=== PATIENT | female | born 1935 | race Caucasian/White ===

== ENCOUNTER → 2017-12-12 07:33 | Outpatient (CLI) | payer MEDICARE, OTHER, SELFPAY ==
--- NOTE | 2017-12-12 07:35 | CT_ITS ---
STUDY: CT ABDOMEN AND PELVIS WITH CONTRAST REASON FOR EXAM: Female, 82 years old. Lower quadrant pain epigastric pain history of cholecystectomy hypertension diabetes. RADIATION DOSAGE (If Supplied By Facility): CTDIvol = ( 13.16 ) mGy, DLP = ( 707.58 ) mGycm TECHNIQUE: Transaxial images were obtained from the dome of the diaphragm to the symphysis pubis without oral contrast. 100 ml of Isovue 300 contrast was administered. Sagittal and coronal images were reconstructed. Individualized dose optimization techniques were used for this CT. COMPARISON: None. FINDINGS: The visualized lung bases are unremarkable. The visualized portions of the heart are within normal limits. Normal liver. There are surgical clips in the gallbladder fossa consistent with a prior cholecystectomy. Is a nonspecific cystic space in the spleen measuring 4.1 mm. Normal pancreas. The common duct measures 5.8 mm. Normal bilateral adrenal glands. There is a 3.9 mm cyst in the right kidney. There is mild right-sided extrarenal pelvis. There is a left-sided extrarenal pelvis. There are left-sided peripelvic cysts. There is a sizable hiatal hernia with the fundus within the chest. There is a collapsed mildly thick-walled appearance of the fundus. This measures 7.1 x 4.2 cm. There is a thick walled appearance of the second part of the duodenum. There is a sizable duodenal diverticulum measuring 4.5 x 4.3 cm. The wall of the duodenum is mildly thickened at that level. There is contrast within the ascending colon. There are contrast air-fluid levels present. There is diverticulosis without visualized diverticulitis. The visualized pessary in place within the vagina. The appendix is visualized and appears normal. Aorta is partially calcified. Normal inferior vena cava. Normal retroperitoneum. Normal urinary bladder. Normal visualized uterus. Is a nonspecific calcification in the left side of the pelvis which may represent prior granulomatous tissue or calcified lymph node. Normal abdominal wall. There is slight anterolisthesis at L4-L5. There is disc space narrowing mild neural foramina narrowing facet arthropathy. At L3-L4 there is a broad disc bulge slightly anterolisthesis moderate neural foramina narrowing moderate central stenosis facet arthropathy. CT/Abdomen/Pelvis WITH Contrast IMPRESSION: Diverticulosis no radiographic evidence of diverticulitis. Pessary in place. Mildly thick-walled appearance of the duodenum at the level of a sizable diverticulum that measures 4.5 x 4.3 cm. Consider possible duodenitis. Sizable hiatal hernia the fundus of the stomach is in the chest measuring 7.1 x 4.3 cm. Status post cholecystectomy minimal intra and extra hepatic ductal dilatation. Bilateral peripelvic cysts without evidence of hydronephrosis. Electronically Signed: Francisca Ly MD at 17:15 EDT Tel , Service support ,
[2017-12-12 08:05] LABS: CREATININE FINGERSTICK 0.9 mg/dL (0.55-1.02); EGFR FINGERSTICK > 60.0000 mL/min (>60)
== END ==
PROVIDERS: Family Provider Internal Medicine; PCP Internal Medicine; Visit Provider Surgery
DX: K57.90 Diverticulosis of intestine, part unspecified, without perforation or abscess without bleeding (principal); K44.9 Diaphragmatic hernia without obstruction or gangrene; N94.89 Other specified conditions associated with female genital organs and menstrual cycle; R10.9 Unspecified abdominal pain; R19.7 Diarrhea, unspecified
CPT/HCPCS: 74177; Q9967

== ENCOUNTER 2017-12-27 09:51 | Day surgery (SDC) | payer MEDICARE, OTHER, SELFPAY ==
[2017-12-27] VITALS (7 sets, daily range): BP systolic 112–147; BP diastolic 58–71; PULSE 60–103; RESP 14–16; TEMP 36.2–36.3; O2SAT 94–100; BMI 21.9
--- NOTE | 2017-12-27 | IMM_PTH ---
PATIENT: CARMEN BETHEA I LOC: EN U#:[id number] AGE/SX: 82/F ROOM: RE12/27/[address]: Dr. Charles Campos MD : 1935 BED: DIS: 12/27/2017 SPEC #: [id number] RECD: 12/28/17 13:13 STATUS: DAYA REPolo #: [id number] [place]: 12/27/17 00:[address]: Charles Campos DEPT: IMMUNOHISTOCHEMISTRY RECD BY: Pat Terry ENTERED: 12/28/17 13:14 SP TYPE: IMMUNO OTHR DR: Dr. Oneyda South MD Tissues: A - Stomach, NOS Procedures: H Pylori (initial) PHYSICIAN & INSTITUTION [place] [id number] SPECIMEN INFORMATION: Tissue Source: A - Antral biopsy Clinical Info: LLQ pain, diarrhea Specimen Number: [id number] CPT code: 46531 METHODOLOGY: Deparaffinized sections of prefer/formalin-fixed tissue or PAP/DQ stained slides are incubated with monoclonal/polyclonal antibodies/oligonucleotide probes. Localization is made via biotin free immunoperoxidase method. Appropriate controls are performed and reacted as expected. Results on target cell population are indicated in the following table: RESULTS: ANTIBODY / CLONE RESULT Block A H Pylori (polyclonal) negative These tests were developed and their performance characteristics determined by [facility]. They may not have been cleared or approved by the U.S. Food and Drug Administration. The FDA has determined that such clearance or approval is not necessary. INTERPRETATION: A. Antral biopsy: Negative for Helicobacter pylori organisms. SJ:cameron 12/28/17
[2017-12-27 10:35] LABS: Bedside Glucose 139 mg/dL (70-110)
--- NOTE | 2017-12-27 11:00 | EGD_PTH ---
PATIENT: CARMEN BETHEA I LOC: EN U#:[id number] AGE/SX: 82/F ROOM: RE12/27/[address]: Dr. Charles Campos MD : 1935 BED: DIS: 12/27/2017 SPEC #: [id number] RECD: 12/27/17 11:59 STATUS: DAYA [place] #: [id number] [place]: 12/27/17 11:[address]: Charles Campos DEPT: SURGICAL PATHOLOGY RECD BY: Robert Savage ENTERED: 12/27/17 13:32 SP TYPE: EGD BIOPSY OTHR DR: Dr. Oneyda South MD Tissues: A - Gastric mucous membrane B - Gastric fundus C - Gastric mucous membrane D - Ileum, NOS E - COLON BIOPSY Procedures: Special Stain Group II Surgery Specimen Level IV Alcian Blue/PAS (control) HEADER OPERATION: Colonoscopy, EGD ([facility] [place]) PRE-OP DIAGNOSIS: LLQ pain, diarrhea TISSUE SUBMITTED: A - Antral biopsy, B - Fundic polyp biopsy, C - GE junction biopsy, D - Ileocecal valve biopsy, E - Random colonic biopsy MICROSCOPIC DIAGNOSIS A. Antral biopsy: Mild gastritis. B. Fundic polyp, biopsy: Fragments of gastric mucosa with focal changes suggestive of fundic gland polyp. C. GE junction, biopsy: A fragment of gastroesophageal mucosa with chronic inflammation. Intestinal metaplasia (goblet cell metaplasia) is not identified. See comment. D. Ileocecal valve, biopsy: Fragments of small intestinal and colonic mucosa, no pathologic diagnosis. E. Colon, random biopsy: Fragments of colonic mucosa, no pathologic diagnosis. SJ:cameron 12/28/17 COMMENT A. The results of immunohistochemistry for Helicobacter pylori will be reported separately ([id number]). C. Alcian blue/PAS stain with matched control is used in the evaluation of the specimen. MICROSCOPIC DESCRIPTION Slides are reviewed. A. The specimen shows fragments of gastric mucosa with chronic inflammatory cell infiltrates in the lamina propria consisting of lymphocytes and plasma cells, consistent with mild chronic gastritis. GROSS DESCRIPTION A - Received in fixative is one container labeled with the patient's name and designated antral biopsy. The specimen consists of two irregular fragments of light rizzo soft tissue that in aggregate measure 0.7 x 0.3 x 0.1 cm. The specimen is totally submitted in one cassette. B - Received in fixative is one container labeled with the patient's name and designated fundic polyp biopsy. The specimen consists of two irregular fragments of light rizzo soft tissue that in aggregate measure 0.3 x 0.3 x 0.1 cm. The specimen is totally submitted in one cassette. C - Received in fixative is one container labeled with the patient's name and designated GE junction biopsy. The specimen consists of one irregular fragment of light rizzo soft tissue that measures 0.3 x 0.2 x 0.1 cm. The specimen is totally submitted in one cassette. D - Received in fixative is one container labeled with the patient's name and designated ileocecal valve biopsy. The specimen consists of two irregular fragments of light rizzo soft tissue that in aggregate measure 0.5 x 0.2 x 0.1 cm. The specimen is totally submitted in one cassette. E - Received in fixative is one container labeled with the patient's name and designated random colonic biopsy. The specimen consists of multiple irregular fragments of light rizzo soft tissue that in aggregate measure 2 x 0.5 x 0.1 cm. The specimen is totally submitted in one cassette. / MYRON:cameron 12/27/17 TC:3 CPT: 13511 x5, 61661
--- NOTE | 2017-12-27 11:46 | OP.ENDO_ITS ---
Patient Name: Radha Alvarez Procedure Date: 12/27/2017 10:51 AM Date of : 1935 Age: 82 Procedure: Upper GI endoscopy Indications: Dysphagia Providers: Charles Campos MD Referring MD: Charles Campos MD Medicines: See the Anesthesia note for documentation of the administered medications Patient Profile: Previously obtained CT showed a herniation in the stomach. Complications: No immediate complications. Procedure: Pre-Anesthesia Assessment: - Prior to the procedure, a History and Physical was performed, and patient medications and allergies were reviewed. The patient's tolerance of previous anesthesia was also reviewed. The risks and benefits of the procedure and the sedation options and risks were discussed with the patient. All questions were answered, and informed consent was obtained. Prior Anticoagulants: The patient has taken no previous anticoagulant or antiplatelet agents. ASA Grade Assessment: II - A patient with mild systemic disease. After reviewing the risks and benefits, the patient was deemed in satisfactory condition to undergo the procedure. After obtaining informed consent, the endoscope was passed under direct vision. Throughout the procedure, the patient's blood pressure, pulse, and oxygen saturations were monitored continuously. The gastroscope was introduced through the mouth, and advanced to the second part of duodenum. The upper GI endoscopy was accomplished without difficulty. The patient tolerated the procedure well. Scope In: 11:05:15 AM Scope Out: 11:18:47 AM Total Procedure Duration Time 0 hours 13 minutes 32 seconds Findings: LA Grade A (one or more mucosal breaks less than 5 mm, not extending between tops of 2 mucosal folds) esophagitis with no bleeding was found 30 cm from the incisors. Biopsies were taken with a cold forceps for histology. A large hiatal hernia was present. One benign-appearing, intrinsic stenosis was found 30 cm from the incisors. This stenosis was moderately severe and. The stenosis was traversed. A TTS dilator was passed through the scope. Dilation with an 18-19-20 mm balloon dilator was performed to 20 mm. The dilation site was examined and showed moderate improvement in luminal narrowing. Estimated blood loss was minimal. Diffuse minimal inflammation was found in the gastric antrum. Biopsies were taken with a cold forceps for histology. Multiple sessile polyps with no bleeding and no stigmata of recent bleeding were found in the gastric fundus. The polyp was removed with a cold biopsy forceps. Resection and retrieval were complete. The examined duodenum was normal. Impression: - LA Grade A reflux esophagitis. Biopsied. - Large hiatal hernia. - Benign-appearing esophageal stenosis. Schatzki ring. Dilated. - Chronic gastritis. Biopsied. - Multiple gastric polyps. Resected and retrieved. - Normal examined duodenum. Recommendation: - Return to my office in 1 week. - Continue present medications. Procedure Code(s): --- Professional --- 32501, Esophagogastroduodenoscopy, flexible, transoral; with transendoscopic balloon dilation of esophagus (less than 30 mm diameter) 85497, 59, Esophagogastroduodenoscopy, flexible, transoral; with biopsy, single or multiple Diagnosis Code(s): --- Professional --- K21.0, Gastro-esophageal reflux disease with esophagitis K44.9, Diaphragmatic hernia without obstruction or gangrene K22.2, Esophageal obstruction K29.50, Unspecified chronic gastritis without bleeding K31.7, Polyp of stomach and duodenum R13.10, Dysphagia, unspecified CPT copyright 2017 [employer]. All rights reserved. The codes documented in this report are preliminary and upon dried yeast supervisor review may be revised to meet current compliance requirements. Charles Campos MD 12/27/2017 11:46:13 AM This report has been signed electronically. Number of Addenda: 0 Note Initiated On: 12/27/2017 10:51 AM
--- NOTE | 2017-12-27 11:55 | OP.ENDO_ITS ---
Patient Name: Radha Alvarez Procedure Date: 12/27/2017 11:20 AM Date of : 1935 Age: 82 Procedure: Colonoscopy Indications: Abdominal pain in the left lower quadrant, Clinically significant diarrhea of unexplained origin Providers: Charles Campos MD Referring MD: Charles Campos MD Medicines: See the Anesthesia note for documentation of the administered medications Patient Profile: Previously obtained CT showed a herniation in the stomach. Last Colonoscopy: October 2012. Complications: No immediate complications. Procedure: Pre-Anesthesia Assessment: - Prior to the procedure, a History and Physical was performed, and patient medications and allergies were reviewed. The patient's tolerance of previous anesthesia was also reviewed. The risks and benefits of the procedure and the sedation options and risks were discussed with the patient. All questions were answered, and informed consent was obtained. Prior Anticoagulants: The patient has taken no previous anticoagulant or antiplatelet agents. ASA Grade Assessment: II - A patient with mild systemic disease. After reviewing the risks and benefits, the patient was deemed in satisfactory condition to undergo the procedure. After I obtained informed consent, the scope was passed under direct vision. Throughout the procedure, the patient's blood pressure, pulse, and oxygen saturations were monitored continuously. The colonoscope was introduced through the anus and advanced to the cecum, identified by appendiceal orifice and ileocecal valve. The colonoscopy was performed without difficulty. The patient tolerated the procedure well. The quality of the bowel preparation was good. Scope In: 11:22:46 AM Scope Withdrawal Time 0 hours 8 minutes 58 seconds Scope Out: 11:38:22 AM Total Procedure Duration Time 0 hours 15 minutes 36 seconds Findings: The digital rectal exam findings include internal hemorrhoids that prolapse with straining, but spontaneously regress to the resting position (Grade II). Multiple diverticula were found in the sigmoid colon and descending colon. Biopsies for histology were taken with a cold forceps from the entire colon for evaluation of microscopic colitis. A focal area of Moderately large lipoma mucosa was found at the ileocecal valve. Biopsies were taken with a cold forceps for histology. Impression: - Internal hemorrhoids that prolapse with straining, but spontaneously regress to the resting position (Grade II) found on digital rectal exam. - Diverticulosis in the sigmoid colon and in the descending colon. Biopsied. - Mucosa at the ileocecal valve. Biopsied. Consistent with a lipoma of the ileocecal valve Recommendation: - Discharge patient to home. - Resume previous diet. - Continue present medications. - Return to my office in 1 week. Extensive sigmoid diverticular disease and mat be source of abdominal pain and diarrhea. Random biopsy pathology and ileocecal valve pathology pending - Repeat colonoscopy in 5 years for surveillance because of family history of colon cancer in her father Procedure Code(s): --- Professional --- 48729, Colonoscopy, flexible; with biopsy, single or multiple Diagnosis Code(s): --- Professional --- K64.1, Second degree hemorrhoids K63.89, Other specified diseases of intestine R10.32, Left lower quadrant pain R19.7, Diarrhea, unspecified K57.30, Diverticulosis of large intestine without perforation or abscess without bleeding CPT copyright 2017 [employer] [place] [employer]. All rights reserved. The codes documented in this report are preliminary and upon rag cutting machine tender review may be revised to meet current compliance requirements. Charles Campos MD 12/27/2017 11:54:42 AM This report has been signed electronically. Number of Addenda: 0 Note Initiated On: 12/27/2017 11:20 AM
== END 2017-12-27 12:49 | disposition home or self-care (01) ==
LOC: EN 09:52 → AC 09:53
PROVIDERS: Family Provider Internal Medicine; PCP Internal Medicine; Referring Provider Surgery; Visit Provider Surgery
PROC: 0DJD8ZZ Inspection of Lower Intestinal Tract, Via Natural or Artificial Opening Endoscopic (ICD-10-PCS; CPT 45378; principal; 2017-12-27 10:55)
DX: K21.0 Gastro-esophageal reflux disease with esophagitis (principal); K29.50 Unspecified chronic gastritis without bleeding; K31.7 Polyp of stomach and duodenum; K44.9 Diaphragmatic hernia without obstruction or gangrene; K22.2 Esophageal obstruction; R13.10 Dysphagia, unspecified; K64.1 Second degree hemorrhoids; K57.30 Diverticulosis of large intestine without perforation or abscess without bleeding; K63.89 Other specified diseases of intestine; R10.32 Left lower quadrant pain; R19.7 Diarrhea, unspecified; E03.9 Hypothyroidism, unspecified; E78.5 Hyperlipidemia, unspecified; M81.0 Age-related osteoporosis without current pathological fracture; E11.9 Type 2 diabetes mellitus without complications; Z79.84 Long term (current) use of oral hypoglycemic drugs; Z79.899 Other long term (current) drug therapy; Z80.0 Family history of malignant neoplasm of digestive organs
CPT/HCPCS: 43239; 43249; 45380; 82962; 88305; 88313; 88342; J7120

== ENCOUNTER → 2018-03-16 08:14 | Outpatient (CLI) | payer MEDICARE, OTHER, SELFPAY ==
[2017-12-27 10:12] VITALS: BMI 21.9
--- NOTE | 2018-03-16 08:30 | RAD_ITS ---
CLINICAL HISTORY: Female, 82 years old. PROCEDURE: Double contrast upper GI CONSENT: 1 SEDATION: No FLUOROSCOPY TIME (if supplied): (0:13) minutes/seconds TECHNIQUE: (All elements of maximal sterile barrier technique followed, including US elements as applicable) Patient swallowed barium without difficulty no evidence of obstruction. There is fixed pattern hernia this measures about 3 x 2.3 cm in its craniocaudad transverse diameter. There was moderate gastroesophageal reflux. The rest of the stomach was filled with contrast to its normal contour without evidence of mucosal abnormality. The duodenal bulb and sweep are unremarkable so is the small bowel. RAD/Upper GI w/BA Swallow IMPRESSION: Fixed hiatal hernia of moderate size as described above with gastroesophageal reflux. Electronically Signed: Ryan Vieira, at 15:09 EST Tel , Service support ,
== END ==
PROVIDERS: Family Provider Internal Medicine; PCP Internal Medicine; Referring Provider Surgery; Visit Provider Surgery
DX: K21.0 Gastro-esophageal reflux disease with esophagitis (principal); K44.9 Diaphragmatic hernia without obstruction or gangrene
CPT/HCPCS: 74246

== ENCOUNTER 2018-03-30 08:53 | Day surgery (SDC) | payer MEDICARE, OTHER, SELFPAY ==
[2017-12-27 10:12] VITALS: BMI 21.9
[2018-03-30 09:21] VITALS: BP 164/84; PULSE 91; RESP 16; TEMP 36.4; O2SAT 100
== END 2018-03-30 10:24 | disposition home or self-care (01) ==
PROVIDERS: Surgery; Family Provider Internal Medicine; PCP Internal Medicine; Referring Provider Surgery; Visit Provider Surgery
PROC: F00ZJWZ Instrumental Swallowing and Oral Function Assessment using Swallowing Equipment (ICD-10-PCS; CPT 43235; principal; 2018-03-30 08:55)
DX: K21.9 Gastro-esophageal reflux disease without esophagitis (principal)
CPT/HCPCS: 91010

== ENCOUNTER 2018-04-19 10:16 | Observation (INO) | payer MEDICARE, OTHER, SELFPAY ==
--- NOTE | 2018-04-13 12:56 | EKG12_ITS ---
Test Reason : PRE OP Blood Pressure : / mmHG Vent. Rate : 068 BPM Atrial Rate : 068 BPM P-R Int : 154 ms QRS Dur : 066 ms QT Int : 362 ms P-R-T Axes : 047 006 044 degrees QTc Int : 384 ms Normal sinus rhythm Low voltage QRS Borderline ECG Confirmed by BRITTANY HARRISON, AFRICA ([id number]), newspaper copy editor REINA PEDROZA ([id number]) on 04/14/2018 2:36:06 PM Referred By: Charles Campos Confirmed By:AFRICA SOTO MD
[2018-04-13 13:27] LABS: Hematocrit 39.8 % (37-47); Mean Corp Hgb Conc 32.7 g/gl (32-36); Mean Corpuscular Hgb 32.1 pg (27.0-32.0); Mean Corpuscular Volume 98.3 fL (81-99); Mean Platelet Vol. 9.9 fl (6.2-12.0); Platelet Count 276 K/mm3 (150-450); RBC Distribution Width CV 12.8 % (11.6-14.6); RBC Distribution Width SD 45.3 fl (35.1-43.9); Red Blood Count 4.05 M/mm3 (4.2-5.4); White Blood Count 7.3 K/mm3 (4.4-11.0)
[2018-04-13 13:29] LABS: Scan Indicated on CBC? Y/N NO
[2018-04-13 13:56] LABS: Hemoglobin A1c 7.5 % (4.2-6.3)
[2018-04-13 14:01] LABS: Anion Gap 7 (5-15); BUN 15 mg/dL (7-18); Calcium,Total 9.5 mg/dL (8.5-10.1); Chloride 106 mmol/L (98-107); EST Glomerular Filtration Rate 56 mL/min (>60); Est Glom Filt Rate - Afr Amer 68 mL/min (>60); Glucose 135 mg/dL (74-106); Potassium 4.3 mmol/L (3.5-5.1); Sodium Level 139 mmol/L (136-145); Thyroid Stim Hormone (TSH) 2.41 uIU/mL (0.358-3.74)
[2018-04-19] VITALS (10 sets, daily range): BP systolic 117–155; BP diastolic 50–77; PULSE 62–88; RESP 14–16; TEMP 36.3–37.1; O2SAT 95–100; BMI 21.9
[2018-04-19 06:15] LABS: Bedside Glucose 144 mg/dL (70-110)
--- NOTE | 2018-04-19 07:04 | PCM.DC.GS ---
<Charles Campos - Last Filed: 04/19/18 07:04> Discharge Diet: Light diet - advance as tolerated - if you have questions about your diet instructions, please talk to you doctor. Discharge Activity: May Not Drive - for 3-5 days or while taking narcotic pain medicine. May shower in (days): 1 Lifting Restrictions: 10 pounds Call your doctor if your incision/area has: Continuous Slow Oozing, Sudden Increased Bleeding, Increased Pain/ Swelling, Increased Redness, Foul Smelling Discharge Call your doctor if you observe: Fever of 101 or Higher Suture Line Care: Avoid Pulling/Pushing, Avoid Pinching/Bending Additional Dressing/Incision Instructions:: Change or remove dressing in 3 days. Leave steri-strips in place for 1 week. Allergies/Adverse Reactions: Allergies shrimp Allergy (Verified 04/12/18 10:09) Hives Medications to take at Discharge cholecalciferol (vitamin D3) 1,000 unit capsule 2,000 unit PO DAILY cap 12/05/17 glipizide 5 mg tablet 5 mg PO DAILY 12/05/17 levothyroxine 100 mcg capsule 100 mcg PO DAILY 12/05/17 lisinopril 5 mg tablet 5 mg PO DAILY 12/05/17 metformin ER 500 mg tablet,extended release 24 hr 500 mg PO DAILY tab 12/05/17 Estradiol [Estrace Vaginal Cream] 1 dose VAGINAL UD 12/23/17 Esomeprazole Magnesium [Nexium 24Hr] 20 mg PO DAILY 04/12/18 Hydrocodone Bitart/Apap 5-325 [[employer] 5MG-325MG] 1 tablet PO Q6H PRN PRN 3 Days #8 tablet 04/19/18 The following prescriptions were given: Hydrocodone Bitart/Apap 5-325 [[employer] 5MG-325MG] 1 tablet PO Q6H PRN PRN 3 Days #8 tablet PRN Reason: Pain Orders to be completed after discharge: Hemoglobin A1c Time Frame: 04/12/18, Location: Laboratory Thyroid Stim Hormone (TSH) Time Frame: 04/12/18, Location: Laboratory Primary Care Physician: Oneyda South MD [Primary Care Provider] - Test Results: Test results from this visit will be discussed in further detail at your follow-up appointment, if applicable. Please Follow Up With: Charles Campos MD - [phone] When: Call to make an appointment to be seen in about 10 days. <Angie Banerjee - Last Filed: 04/20/18 15:06> Test Results: Test results from this visit will be discussed in further detail at your follow-up appointment, if applicable.
[2018-04-19] MEDS: Cefazolin 2 GM in 0.9% Normal Saline 100 ML IV (07:13)
[2018-04-19] MEDS: Bupivacaine Mpf 0.5% 30 ML VIAL (10:18)
--- NOTE | 2018-04-19 10:23 | PCM.OPRPT ---
Problem List (1) Hiatal hernia with gastroesophageal reflux disease and esophagitis Status: Acute (2) Bilateral inguinal hernia Status: Acute Qualifiers: Obstruction and gangrene presence: without obstruction or gangrene Recurrence: non-recurrent Qualified Code(s): K40.20 - Bilateral inguinal hernia, without obstruction or gangrene, not specified as recurrent Report of Operation Date of Procedure: 04/19/18 Pre-Operative Diagnosis: Symptomatic hiatal hernia with gastroesophageal reflux disease and Schatzki ring Post-Operative Diagnosis: Symptomatic hiatal hernia with paraesophageal component and symptomatic gastroesophageal reflux disease and Schatzki ring. Bilateral indirect inguinal hernias with small bowel involvement on the right and sigmoid colon involvement on the left Surgery/Procedure Performed:: Laparoscopic repair of hiatal hernia with [place] bio a mesh tissue reinforcement. Laparoscopic toupee procedure. Esophagogastroduodenoscopy Description of Surgical Findings:: Timeout and informed consent was obtained. 82-year-old female taken the operating placement table underwent general anesthesia and intubation. Ancef 2 g given intravenously preoperatively. She was placed in low lithotomy position. Buttock was carefully supported with foot board and rolled blankets. The abdomen was sterilely prepped and draped. Ioban draping was used to assist with draped placement. 0.5% Marcaine was used as local anesthetic. Throughout the procedure total 30 cc was used and skin sites were pre-anesthetized. Superior to the right of the umbilicus local was instilled and then a 5 mm Visiport access was gained cleanly to the abdomen. The abdomen was insufflated with CO2 to a pressure of 12 mmHg pressure. 5-minute trochars placed in the right upper quadrant telemeter trocar in the left epigastrium and 2 more 5 mm trochars in the left subcostal area. Expiration revealed bilateral indirect inguinal hernias with small bowel involvement of the right and sigmoid colon involvement on the left. Both pieces of bowel could be reduced at this time. Inspection revealed the sizable hiatal hernia with paraesophageal component of the fundus of the stomach. The pars flaccida was identified it was incised with a harmonic scalpel anteriorly this gave access to the hernia sac which then could be dissected free with the pneumoperitoneum assisting with the dissection. Tediously circumferentially both the right and left sharri were clearly identified leaving peritoneum intact over the musculature. I was able to then transect the short gastrics for short distance so as to fully mobilize the fundus and see the left sharri I was able to continue to withdraw the stomach from the chest working posteriorly could identify the posterior fat pad was able to mobilize that. So doing the posterior vagus nerve was clearly identified and carefully preserved. I was then able to get circumferential control around the EG junction I placed 1/2 inch Lilliana drain the vagus nerve was carefully protected with the esophagus. This allowed me to better facilitate circumferential dissection of the esophagus for approximately 8 cm into the mediastinum completely freeing up its attachments to allow for better positioning. Having achieved that now I would nice length and was able to get the EG junction well back into the abdomen. The sharri was approximated using hemo-shield carotid patch pledgets. Lot #[id number]. Serial #[id number]. Expiry date 10/18/2022. I used 0 Ethibond sutures and with simple suture technique extrapleural knot-tying reinforced with intracorporeal knot tying and the pledgets I repaired the diaphragmatic hiatus. 4 sutures were placed posteriorly and one suture anteriorly. Had nice approximation. The hernia sac had been reduced. I was able to dissect that free and pulled that down upon the stomach. At this point I had clear visualization of the EG junction and of a good length of the esophagus. I elected not to resect that sac as it was not interfering with the rest of my repair. Patient was age 82 however I felt that further securement was indicated. I selected a [place] bio a tissue enforcement mesh reference number [id number]. Serial #[id number]. Expiry date 12/18/2020. I used 2-0 Ethibond and at one corner 2-0 Vicryl in order to secure the mesh in place. The mesh did not want to sit with the crotch facing anteriorly. I had to place the mesh so that the crotch was facing to the left and so that the main bulk of the mesh was to the left of the diaphragm was on the left diaphragm the 2 tails coming from that side heading toward the right. I was able then to secure at 4 corners with 2-0 Ethibond. Great care was taken to keep the mesh away from the esophagus itself and carefully secured to the diaphragm. I felt I did have good positioning of that. I then wrapped the fundus of the stomach. Patient does have some abnormality on manometric swallowing studies were elected to do a to play. I secured the wrap portion of the stomach to the right sharri of the diaphragm with a 0 Ethibond suture. I then performed the to pay approximating the very apical suture to the esophagus to the epiphrenic ligament into the wrapped portion of the stomach and then in a running fashion I secured that. I then fixed the left portion of the wrap in the same fashion. The completion I would aim for approximately a 270 degree wrap felt that I probably ended up with a 250 degrees wrap. I felt that this was quite appropriate in an 82-year-old with some motility issues. At the completion however I felt that all suturing and positioning was corrected in place. I then carefully introduced a flexible gastroscope so that the EG junction was nicely below the diaphragm was able to easily advance the scope into the stomach retroflexed the scope and was able to see the posterior wrap appeared to be intact there was absolutely no air leak. Advanced the scope inspected the duodenum and stomach the stomach had polyps but otherwise did not appear to be inflamed. Excess fluid and air was aspirated free the scope was carefully withdrawn did not see any stricturing currently of the distal esophagus. Excess fluid and air was aspirated free. I inspected the groin areas and made sure that the bowel was out of the hernias. I utilized a 0 Vicryl in a [id number] suture to close the 10 mm port site. Now the remaining trochars were removed under visualization. The abdomen was allowed to deflate of the CO2. Skin edges proximal interrupted 4 Monocryl subdermal stitches. Steri-Strips Telfa and OpSite dressings applied. Sponge and instrument and needle counts were reported to the surgeon be correct. Specimens none. Drains none. Blood loss minimal. Charles Campos M.D., F.A.C.S. Type of Anesthesia:: General Anesthesiologist: Baldo Tellez
[2018-04-19 11:10] LABS: Bedside Glucose 208 mg/dL (70-110)
[2018-04-19] MEDS: Morphine 2 MG/ML Syringe IV (12:34)
[2018-04-19] MEDS: Ondansetron 4 MG/2 ML Vial IV (12:35)
[2018-04-19] MEDS: Acetaminophen 325 MG Tablet 650 MG PO (14:23)
[2018-04-19] MEDS: HYDROcodone Bitartrate/Apap 5/325 Tablet PO (16:33)
[2018-04-19] MEDS: Lactated Ringers 1,000 ML 50 ML IV (17:52)
[2018-04-19] MEDS: Ketorolac 15 MG/ML Vial IV (20:14)
[2018-04-19 21:46] LABS: Bedside Glucose 223 mg/dL (70-110)
[2018-04-20 02:00] VITALS: BP 98/52; PULSE 60; RESP 16; TEMP 36.8; O2SAT 98
--- NOTE | 2018-04-20 05:53 | PCM.PN.SRG ---
Patient Problems: Active and Suspected Problems (Last Reviewed 01/06/18 @ 13:26 by Jie Vargas) Bilateral inguinal hernia (Acute) Subjective: Hiccoughs last night while trying to drink Will check this a.m. Left shoulder pain much better with single dosing of toradol - Physical Exam General: Alert, Oriented x3, Cooperative, No apparent distress Lungs: Clear to auscultation Abdomen: Bowel Sounds Present, Soft, Distended Vital Signs Temp Pulse Resp BP Pulse Ox 98.2 F 60 16 98/52 L 98 04/20/18 02:00 04/20/18 02:00 04/20/18 02:00 04/20/18 02:00 04/20/18 02:00 Oxygen Flow Rate (L/min) 2 Oxygen Delivery Method Room Air Weight: 127 lb 12.8 oz Body Mass Index (BMI) 21.9 Finger Stick Blood Glucose 208 Intake and Output for Last 24 Hours 04/18/18 04/19/18 04/20/18 23:59 23:59 23:59 Intake Total 3200 / 3200 440 / 440 Output Total 450 / 450 Balance 2750 / 2750 440 / 440 POC Glucose 04/19/18 04/19/18 04/19/18 21:34 10:54 05:56 POC Glucose 223 H 208 H 144 H Medical Necessity - Tobacco Use Smoking Status: Never smoker Tobacco Use: Non-smoker Assessment/Plan All Active Problems (Last Reviewed 01/06/18 @ 13:26 by Jie Vargas) Bilateral inguinal hernia (Acute) Hiatal hernia with gastroesophageal reflux disease and esophagitis (Acute) Diarrhea (Acute) Abdominal pain (Acute) Hx of colonoscopy (Acute) History of esophagogastroduodenoscopy (EGD) (Acute) Hx of cholecystectomy (Acute) Hx of varicose veins (Acute) Uterovaginal prolapse, incomplete (Acute) Hypothyroid (Acute) Hemorrhoids (Acute) Diabetes mellitus (Acute) Thickened endometrium (Acute) Hyperlipidemia (Acute) Osteoporosis (Acute) Diverticulosis of colon (without mention of hemorrhage) (Acute) Mobilize and check swallowing today Hopeful home later today
[2018-04-20] MEDS: Levothyroxine 100 MCG Tablet PO (06:58)
[2018-04-20 07:01] LABS: Bedside Glucose 116 mg/dL (70-110)
[2018-04-20 08:00] VITALS: BP 141/60; PULSE 64; RESP 18; TEMP 37.2; O2SAT 99
[2018-04-20] MEDS: glipiZIDE 5 MG Tablet PO (08:18)
[2018-04-20] MEDS: Enoxaparin 30 MG/0.3 ML Syringe SC (08:19)
[2018-04-20] MEDS: Pantoprazole Sodium 20 MG Tablet PO (09:57)
[2018-04-20] MEDS: Lisinopril 5 MG Tablet PO (09:57)
--- NOTE | 2018-04-20 11:44 | CASEMGMT ---
RN CM Assessment Presentation: POD #1 for Lap repair of hiatal hernia, toupee procedure and EGD. Plan is for dc home today. Intro role of CM and purpose of RN CM assessment to patient. She is able to participate in dc planning. Pt is ambulatory in room. PCP: Dr. South Specialists: Dr. Charles Campos [facility]. Pt was concerned where script was being sent- verified prescription was sent to [facility] in [place]. Insurance: [facility] Prescription Benefit: yes LNOK: Daughter Marie Smith Living Arrangements: Pt lives independently. Denies using ambulatory DME, denies oxygen use. Drives, however states her daughter will pick her up to go home and will take her to f/u appointments on discharge. Pt states she is independent in ADL's, but if care needs arise, her daughter is able to assist. DC PLAN: Home with family support. Tali RAMIREZ RN ACM
[2018-04-20] MEDS: Acetaminophen 325 MG Tablet 650 MG PO (13:48)
[2018-04-20 16:30] VITALS: BP 127/56; PULSE 68; RESP 18; TEMP 37; O2SAT 100
== END 2018-04-20 16:45 | disposition home or self-care (01) ==
LOC: SDC 10:32
PROVIDERS: Admitting Provider Surgery; Family Provider Internal Medicine; PCP Internal Medicine; Referring Provider Surgery; Visit Provider Surgery
PROC: (CPT 43325; principal; 2018-04-19 06:55)
DX: K44.9 Diaphragmatic hernia without obstruction or gangrene (principal); K21.0 Gastro-esophageal reflux disease with esophagitis; K22.2 Esophageal obstruction; K40.20 Bilateral inguinal hernia, without obstruction or gangrene, not specified as recurrent; M25.512 Pain in left shoulder; E11.9 Type 2 diabetes mellitus without complications; E78.5 Hyperlipidemia, unspecified; E03.9 Hypothyroidism, unspecified; Z79.899 Other long term (current) drug therapy; Z79.84 Long term (current) use of oral hypoglycemic drugs
CPT/HCPCS: 43280; 36415; 80048; 82962; 83036; 84443; 85027; 93005; 96372; 96374; 96375; 99218; J7120; C1768; G0378; G0379; J2405

== ENCOUNTER 2022-02-16 05:43 | Day surgery (SDC) | payer MEDICARE, OTHER, SELFPAY ==
--- NOTE | 2022-02-16 06:12 | HP.PCM_ITS ---
History and Physical Date of Admission: 02/16/22 Chief Complaint: hard stool/rectal thickening Allergies shrimp Allergy (Verified 02/09/22 15:10) Hives Medications cholecalciferol (vitamin D3) 25 mcg (1,000 unit) capsule 2,000 unit PO DAILY supplement 12/05/17 [History Confirmed 02/09/22] glipizide 5 mg tablet 5 mg PO DAILY blood sugar control 12/05/17 [History Confirmed 02/09/22] lisinopril 5 mg tablet 5 mg PO DAILY blood pressure 12/05/17 [History Confirmed 02/09/22] metformin 500 mg tablet,extended release 24 hr 500 mg PO DAILY blood sugar control 12/05/17 [History Confirmed 02/09/22] estradiol 0.01% (0.1 mg/gram) vaginal cream 1 dose vaginal UD supplemnt 12/23/17 [History Confirmed 02/09/22] esomeprazole magnesium 20 mg capsule,delayed release 20 mg PO DAILY 04/12/18 [History Confirmed 02/09/22] levothyroxine 88 mcg capsule 88 mcg PO DAILY 02/09/22 [History Confirmed ] trazodone 50 mg tablet 25 mg PO DAILY 02/09/22 [History Confirmed 02/09/22] Assessment and Plan Assessment and Plan (1) Abnormal CT scan: ?Status:?Acute ?Plan: I have a CT report dated December 28, 2021 from the [facility].? This was of the abdomen pelvis without IV contrast.? Evidence of previous cholecystectomy.? Postoperative changes from hiatal hernia repair.? Duodenal diverticulum.? Lipoma in the ascending colon.? Diverticula in the sigmoid colon without evidence of diverticulitis.? Thickening of the wall of the rectum though possible lack of full distention.? Pessary is present.? No acute pathology.? Consider colonoscopy to evaluate the rectal wall thickening. Charles Campos M.D., F.A.C.S. (2) Bilateral inguinal hernia: ?Status:?Acute ?Qualifiers: ?Obstruction and gangrene presence:?without obstruction or gangrene?? Recurrence:?non-recurrent? Qualified Code(s):?K40.20 - Bilateral inguinal hernia, without obstruction or gangrene, not specified as recurrent ? ? ? Orders: Orders Colonoscopy 02/16/22 ? ? 02/10/22 1336 <Electronically signed by Charles Campos MD> Date Charles Campos MD cc:? Dr. Oneyda South MD ~* Signed Intake Vital Signs ? 02/09/2215:09 Weight: 123 lb BP 176/74 H Blood Pressure Location Rt brachial Position Sitting Respiration 17 Pulse 100 Pulse Source Monitor Temp 97.2 F L Temp Source Temporal Pulse Oximetry (%) 100 Oxygen Delivery Method room air Intake Visit Reasons:?HARD STOOL. RECTAL THICKENING Chief Complaint: hard stool/rectal thickening Is patient in pain?: No Allergies shrimp Allergy (Verified 02/09/22 15:10) Hives Medications cholecalciferol (vitamin D3) 25 mcg (1,000 unit) capsule 2,000 unit PO DAILY supplement 12/05/17 [History Confirmed 02/09/22] glipizide 5 mg tablet 5 mg PO DAILY blood sugar control 12/05/17 [History Confirmed 02/09/22] lisinopril 5 mg tablet 5 mg PO DAILY blood pressure 12/05/17 [History Confirmed 02/09/22] metformin 500 mg tablet,extended release 24 hr 500 mg PO DAILY blood sugar control 12/05/17 [History Confirmed 02/09/22] estradiol 0.01% (0.1 mg/gram) vaginal cream 1 dose vaginal UD supplemnt 12/23/17 [History Confirmed 02/09/22] esomeprazole magnesium 20 mg capsule,delayed release 20 mg PO DAILY 04/12/18 [History Confirmed 02/09/22] levothyroxine 88 mcg capsule 88 mcg PO DAILY 02/09/22 [History Confirmed 02/09/22] trazodone 50 mg tablet 25 mg PO DAILY 02/09/22 [History Confirmed 02/09/22] PFSH Medical History? Abdominal pain Diabetes mellitus Diarrhea Diverticulosis of colon (without mention of hemorrhage) Hemorrhoids Hiatal hernia with gastroesophageal reflux disease and esophagitis Hyperlipidemia Hypothyroid Osteoporosis Thickened endometrium Uterovaginal prolapse, incomplete Surgical History? History of esophagogastroduodenoscopy (~12/27/17) History of esophagogastroduodenoscopy (EGD) History of repair of hiatal hernia Hx of cholecystectomy Hx of colonoscopy Hx of varicose veins S/P bilateral inguinal hernia repair S/P colonoscopy (~12/27/17) Family History? Father Colon cancerMother Diabetes Social History? Smoking Status:? Never smoker second hand exposure:? No alcohol intake:? never substance use type:? does not use caffeine:? Yes what type of physical activity do you participate in:? none frequency:? does not exercise seatbelt use:? always HPI HPI HPI: 86-year-old female who is being referred by Dr. Oneyda South for surgical consultation regarding constipation and abnormal CT imaging.? Written copy my surgical consult and recommendations will be returned to her.? I have assisted the patient most recently with a laparoscopic toupet procedure with placement of bio mesh on April 19, 2018.? She does have a additional history of bilateral inguinal hernias.? She is being referred because of hard stools and rectal thickening on CT imaging.? Patient denies bright red blood per rectum or melena.? Her father had colon cancer.? Her most recent colonoscopy was 2018.? She complains of constipation for which she is taking MiraLAX.? No bright red blood per rectum or melena.? She has had some slight weight decrease but that stabilized.? She requires MiraLAX now.? She had a CT scan showing rectal wall th ickening. She also is complaining of increased bulging in the left groin.? It is of note that she has had known bilateral inguinal hernias for at least 3 years.? We had initially previously seen her to consider repair and she has delayed.? 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 She has now had progressive bulging particularly of the left groin.? Her pessary does not fit as well either. ROS General General: No weight change, appetite, fatigue, colon cancer, breast cancer or weakness HEENT HEENT: No difficulty swallowing, eye injury, eye surgery, swollen glands or hoarseness Endo Endocrine: Yes thyroid disease and diabetes mellitus; No thyroid cancer, Hair loss, heat intolerance or cold intolerance Skin Skin: No rash or changing moles Musc Musculoskeletal: No back problems, arthritis, rheumatoid arthritis, gout or joint pain Cardio Cardiovascular: No murmur, pacemaker, heart disease, atrial fibrillation, high blood pressure, heart attack, heart stent, palpitations, shortness of breat with exertion or chest pain Psych Psychiatric: Yes depression; No anxiety or hearing voices Gastro Gastrointestinal: Yes abdominal pain, No nausea or vomiting, Yes diarrhea, Yes constipation, No blood in stool, No acid reflux, No hemorrhoids, No ulcers, No gallbladder problem and No black,tarry stools Anuj Hematologic: No blood thinners, No blood disorders, No bleeding, No anemia and No blood clots Neuro Neurologic: No system reviewed and no additional complaints, except as documented, No as per HPI, No abnormal gait, No abnormal hearing, No abnormal movements, No abnormal speech, No behavioral changes, No burning sensations, No confusion, No convulsions, No disequilibrium, No dizziness, No localized weakness, No frequent falls, No headache(s), No lack of coordination, No loss of vision, No memory loss, Yes numbness, No other visual disturbances, No radicular pain, No restless legs, No sensory deficit, No syncope, Yes tingling, No tremor(s), No weakness and No other Exam Const General: cooperative, comfortable and no acute distress [facility] Head: normal to inspection Eyes General: appearance normal, both eyes and all related structures Neck Neck: normal visual inspection Chest Chest palpation & inspection: normal inspection of the chest Resp Effort & Inspection: normal respiratory effort Auscultation: clear to auscultation bilaterally Cardio Rate: regular rate Rhythm: regular rhythm GI Palpation: soft and no hepatosplenomegaly Other: Well-healed laparoscopic incisions from her hiatal hernia repair Other: Obvious bulge in the left groin with lesser defect on the right.? Both sides are still reducible. Skin General: no rashes or lesions noted Neuro General: patient alert, patient awake and patient oriented x3 Extrem General: no calf tenderness Assessment and Plan Assessment and Plan (1) Abnormal CT scan: ?Status:?Acute ?Plan: Copy: Dr. Oneyda Campos M.D., F.A.C.S. (2) Bilateral inguinal hernia: ?Status:?Acute ?Qualifiers: ?Obstruction and gangrene presence:?without obstruction or gangrene?? Recurrence:?non-recurrent? Qualified Code(s):?K40.20 - Bilateral inguinal hernia, without obstruction or gangrene, not specified as recurrent Plan I recommended the patient a colonoscopy with possible biopsy or polypectomy as indicated.? She notes that she has had colon spasm in the past.? She does not w ant a perforation.? We discussed the technique, benefit, risk, alternatives.? We will proceed with monitored anesthesia care. The patient has bilateral inguinal hernias left greater than right.? Her pessary is not working as well.? I have concerns that she has a sliding hernia involving colon on the left.? I do propose for her a laparoscopic bilateral inguinal hernia repair with mesh.? She has not had any previous pelvic surgery only the previous upper surgery done laparoscopically.? I have also discussed the technique, benefit, risk, alternatives.? She will consider her options in this regard. I appreciate the opportunity of assisting with her surgical care.? We will schedule procedure at her discretion. Copy: Dr. Oneyda Campos M.D., F.A.C.S. I have examined the patient and the H&P has been reviewed. There are no clinical changes since date of exam. Plan to proceed with colonoscopy with possible biopsy or polypectomy as indicated. Patient is aware and concurs and desires to proceed. Charles Campos M.D., F.A.C.S.
[2022-02-16] MEDS: Lactated Ringers 1,000 ML 15 ML IV (06:24)
[2022-02-16 06:25] VITALS: BP 151/70; PULSE 74; RESP 18; TEMP 36.5; O2SAT 98; BMI 20.2
[2022-02-16 07:20] VITALS: BP 133/90; BP 151/70; PULSE 73; RESP 16; TEMP 36.6; O2SAT 100
--- NOTE | 2022-02-16 07:21 | OP.COLON_ITS ---
Patient Name: Radha Alvarez Procedure Date: 02/16/2022 6:56 AM Date of : 1935 Age: 86 Procedure: Colonoscopy Indications: Abnormal CT of the GI tract Providers: Charles Campos MD Medicines: See the Anesthesia note for documentation of the administered medications Patient Profile: Last Colonoscopy: March 2018. Complications: No immediate complications. Procedure: Pre-Anesthesia Assessment: - Prior to the procedure, a History and Physical was performed, and patient medications and allergies were reviewed. The patient's tolerance of previous anesthesia was also reviewed. The risks and benefits of the procedure and the sedation options and risks were discussed with the patient. All questions were answered, and informed consent was obtained. Prior Anticoagulants: The patient has taken no previous anticoagulant or antiplatelet agents. ASA Grade Assessment: II - A patient with mild systemic disease. After reviewing the risks and benefits, the patient was deemed in satisfactory condition to undergo the procedure. After I obtained informed consent, the scope was passed under direct vision. Throughout the procedure, the patient's blood pressure, pulse, and oxygen saturations were monitored continuously. The colonoscope was introduced through the anus and advanced to the cecum, identified by appendiceal orifice and ileocecal valve. The colonoscopy was performed without difficulty. The patient tolerated the procedure well. The quality of the bowel preparation was good. Scope In: 7:04:19 AM Scope Withdrawal Time 0 hours 8 minutes 16 seconds Scope Out: 7:15:35 AM Total Procedure Duration Time 0 hours 11 minutes 16 seconds Findings: The digital rectal exam findings include anal stricture, non-thrombosed internal hemorrhoids and internal hemorrhoids that prolapse with straining, but spontaneously regress to the resting position (Grade II). Multiple diverticula were found in the sigmoid colon and descending colon. The exam was otherwise without abnormality. The ileocecal valve was moderately lipomatous. Impression: - Anal stricture, non-thrombosed internal hemorrhoids and internal hemorrhoids that prolapse with straining, but spontaneously regress to the resting position (Grade II) found on digital rectal exam. - Diverticulosis in the sigmoid colon and in the descending colon. Lipomatous ileocecal valve - The examination was otherwise normal. - No specimens collected. Rectum was well inspected there was no evidence of acute or chronic inflammation or or any findings that would correlate with CT wall thickening. No mass lesions identified. Recommendation: - Discharge patient to home. - Resume previous diet. - Continue present medications. - Repeat colonoscopy is not recommended due to current age (66 years or older) for screening purposes. Procedure Code(s): --- Professional --- 73012, Colonoscopy, flexible; diagnostic, including collection of specimen(s) by brushing or washing, when performed (separate procedure) Diagnosis Code(s): --- Professional --- K62.4, Stenosis of anus and rectum K64.1, Second degree hemorrhoids K57.30, Diverticulosis of large intestine without perforation or abscess without bleeding R93.3, Abnormal findings on diagnostic imaging of other parts of digestive tract CPT copyright 2017 [employer]. All rights reserved. The codes documented in this report are preliminary and upon clay artisan review may be revised to meet current compliance requirements. Charles Campos MD 02/16/2022 7:21:03 AM This report has been signed electronically. Number of Addenda: 0 Note Initiated On: 02/16/2022 6:56 AM
--- NOTE | 2022-02-16 07:22 | OP.CCLET_ITS ---
02/16/2022 Oneyda South [address] [place] [address] Re : Colonoscopy procedure for Radha Alvarez Dear Dr. South This procedure was performed on Wednesday, February 16, 2022. My impressions and recommendations are as follows: Impressions : - Anal stricture, non-thrombosed internal hemorrhoids and internal hemorrhoids that prolapse with straining, but spontaneously regress to the resting position (Grade II) found on digital rectal exam. - Diverticulosis in the sigmoid colon and in the descending colon. Lipomatous ileocecal valve - The examination was otherwise normal. - No specimens collected. Rectum was well inspected there was no evidence of acute or chronic inflammation or or any findings that would correlate with CT wall thickening. No mass lesions identified. Recommendations : - Discharge patient to home. - Resume previous diet. - Continue present medications. - Repeat colonoscopy is not recommended due to current age (66 years or older) for screening purposes. My findings are described in the full procedure note, which is enclosed. If I can be of further assistance, please feel free to contact me at Doctor phone number(s): Work: . Sincerely, Charles Campos MD 02/16/2022 7:21:03 AM This report has been signed electronically.
[2022-02-16 07:25] VITALS: BP 124/61; BP 151/70; PULSE 65; RESP 15; O2SAT 100
[2022-02-16 07:30] VITALS: BP 108/50; BP 151/70; PULSE 53; RESP 16; O2SAT 100
[2022-02-16 07:35] VITALS: BP 107/49; BP 151/70; PULSE 58; RESP 16; TEMP 36.4; O2SAT 100
[2022-02-16 07:56] VITALS: BP 151/70
[2022-02-16 12:14] LABS: Bedside Glucose 142 mg/dL (74-106)
== END 2022-02-16 08:10 | disposition home or self-care (01) ==
LOC: EN 05:44 → AC 05:45
PROVIDERS: PCP Internal Medicine; Referring Provider Internal Medicine; Visit Provider Surgery
PROC: 0DJD8ZZ Inspection of Lower Intestinal Tract, Via Natural or Artificial Opening Endoscopic (ICD-10-PCS; CPT 45378; principal; 2022-02-16 06:55)
DX: K57.50 Diverticulosis of both small and large intestine without perforation or abscess without bleeding (principal); K62.4 Stenosis of anus and rectum; K64.1 Second degree hemorrhoids; K40.20 Bilateral inguinal hernia, without obstruction or gangrene, not specified as recurrent; Z79.84 Long term (current) use of oral hypoglycemic drugs; Z79.890 Hormone replacement therapy; Z79.899 Other long term (current) drug therapy; Z80.0 Family history of malignant neoplasm of digestive organs
CPT/HCPCS: 45378; 82962; J7120; J1610; J2405

== ENCOUNTER 2022-04-19 05:46 | Day surgery (SDC) | payer MEDICARE, OTHER, SELFPAY ==
--- NOTE | 2022-04-13 12:17 | EKG12_ITS ---
Test Reason : PRE-OP Blood Pressure : / mmHG Vent. Rate : 072 BPM Atrial Rate : 072 BPM P-R Int : 150 ms QRS Dur : 060 ms QT Int : 358 ms P-R-T Axes : 050 021 070 degrees QTc Int : 392 ms Normal sinus rhythm Normal ECG Confirmed by BRITTANY HARRISON, AFRICA ([id number]), continuity editor DEVAN MAY ([id number]) on 04/14/2022 9:06:14 AM Referred By: Charles Campos Confirmed By:AFRICA SOTO MD
[2022-04-13 13:38] LABS: Hemoglobin 12.9 g/dL (12.0-15.0); Mean Corp Hgb Conc 32.3 g/dL (32-36); Mean Corpuscular Hgb 31.9 pg (27.0-32.0); Mean Corpuscular Volume 98.8 fL (81-99); Platelet Count 256 K/mm3 (150-450); RBC Distribution Width CV 13.2 % (11.6-14.6); RBC Distribution Width SD 48.1 fl (35.1-43.9); Red Blood Count 4.05 M/mm3 (4.2-5.4); White Blood Count 7.8 K/mm3 (4.4-11.0)
[2022-04-13 14:04] LABS: Anion Gap 4 (5-15); BUN 11 mg/dL (7-18); Calcium,Total 9.6 mg/dL (8.5-10.1); Chloride 108 mmol/L (98-107); Creatinine, Serum 0.79 mg/dL (0.55-1.02); EST Glomerular Filtration Rate 74 mL/min (>60); Est Glom Filt Rate - Afr Amer 89 mL/min (>60); Glucose 157 mg/dL (74-106); Sodium Level 140 mmol/L (136-145)
[2022-04-13 14:06] LABS: Hemoglobin A1c 6.9 % (3.8-5.6)
[2022-04-13 14:09] LABS: Thyroid Stim Hormone (TSH) 1.12 uIU/mL (0.358-3.74)
[2022-04-19] VITALS (12 sets, daily range): BP systolic 131–155; BP diastolic 51–78; PULSE 57–90; RESP 16–18; TEMP 36.4–36.8; O2SAT 97–100; BMI 21.1
--- NOTE | 2022-04-19 06:36 | HP.PCM_ITS ---
History and Physical Date of Admission: 04/19/22 Drawing Tender Required: No Is patient in pain?: Yes (sciatic nerve pain) Pain scale (1-10): 8 Allergies shrimp Allergy (Verified 04/05/22 09:38) Hives Medications cholecalciferol (vitamin D3) 25 mcg (1,000 unit) capsule 2,000 unit PO DAILY supplement 12/05/17 [History Confirmed 04/05/22] glipizide 5 mg tablet 5 mg PO DAILY blood sugar control 12/05/17 [History Confirmed 04/05/22] lisinopril 5 mg tablet 5 mg PO DAILY blood pressure 12/05/17 [History Confirmed 04/05/22] metformin 500 mg tablet,extended release 24 hr 500 mg PO 1200 blood sugar control 12/05/17 [History Confirmed 04/05/22] estradiol 0.01% (0.1 mg/gram) vaginal cream 1 dose vaginal TUTH supplemnt 12/23/17 [History Confirmed 04/05/22] levothyroxine 88 mcg capsule 88 mcg PO DAILY 02/09/22 [History Confirmed 04/05/22] trazodone 50 mg tablet 25 mg PO QHS 02/09/22 [History Confirmed 04/05/22] PFSH Medical History? Abdominal pain Anxiety Arthritis Depression Diabetes Diabetes mellitus Diarrhea Dietary restriction Diverticulosis of colon (without mention of hemorrhage) Hemorrhoids Hiatal hernia with gastroesophageal reflux disease and esophagitis History of diverticulitis History of edema Hyperlipidemia Hypertension Hypothyroid Left shoulder pain Non-smoker Numbness and tingling in right hand Osteoporosis Osteoporosis Post-menopausal Thickened endometrium Thyroid disease Uterovaginal prolapse, incomplete Wears dentures Wears glasses Surgical History? History of esophagogastroduodenoscopy (~12/27/17) History of esophagogastroduodenoscopy (EGD) History of repair of hiatal hernia Hx of cholecystectomy Hx of colonoscopy Hx of varicose veins S/P bilateral inguinal hernia repair S/P colonoscopy (~12/27/17) Family History? Father Colon cancerMother Diabetes Social History? Smoking Status:? Never smoker second hand exposure:? No alcohol intake:? never substance use type:? does not use caffeine:? Yes what type of physical activity do you participate in:? none frequency:? does not exercise seatbelt use:? always HPI HPI Surgical H&P: Yes HPI: Patient is an 86 y/o F I am following for an upcoming elective bilateral inguinal hernia repair. Patient denies any recent hospitalizations or illnesses since the last office visit. Patient notes she is not able to use her pessary due to the hernia on the left side. Patient denies any increase in size of the hernias. Patient denies any side effects or complications from anesthesia. She denies any cardiac history or pulmonary concerns. Patient also notes she has tenderness under her right gluteal fold. Patient notes she has calcium deposits all over her body which some cause tenderness. She notes the tenderness under the gluteal fold on the right side occurs when sitting on the toilet.? Patient's previous history per Dr. Campos: 86-year-old female.? On February 16, 2022 I performed a colonoscopy for her.? Fi ndings included anal stenosis and hemorrhoids.? Multiple diverticula of the sigmoid and descending colon.? Ileocecal valve had a lipomatous change.? There is no evidence of any acute rectal inflammation.? The patient had a previous CT scan suggesting possible rectal wall thickening this was not confirmed on the colonoscopy. Her previous CT scan performed December 28, [facility] at [facility] also showed evidence of a previous cholecystectomy.? Postoperative changes from the hiatal hernia repair that we had done for her.? 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 Diverticula of the sigmoid colon.? A pessary was present.? There was no comment of inguinal hernia.? This is unusual as the patient's had a known history of previous bilateral inguinal hernias and they have been known about for at least 3 years.? She has been caring for her who has Parkinson's so she has not sought medical attention herself.? Clinically she has a left greater than right inguinal hernia.? I did propose for previously laparoscopic bilateral inguinal hernia repair. ROS General General: No weight change, appetite, fatigue, colon cancer, breast cancer or weakness HEENT HEENT: No difficulty swallowing, eye injury, eye surgery, swollen glands or hoarseness Endo Endocrine: Yes thyroid disease and diabetes mellitus; No thyroid cancer, Hair loss, heat intolerance or cold intolerance Skin Skin: No rash or changing moles Musc Musculoskeletal: No back problems, arthritis, rheumatoid arthritis, gout or joint pain Cardio Cardiovascular: No murmur, pacemaker, heart disease, atrial fibrillation, high blood pressure, heart attack, heart stent, palpitations, shortness of breat with exertion or chest pain Psych Psychiatric: Yes depression; No anxiety or hearing voices Gastro Gastrointestinal: Yes abdominal pain, No nausea or vomiting, Yes diarrhea, Yes constipation, No blood in stool, No acid reflux, No hemorrhoids, No ulcers, No gallbladder problem and No black,tarry stools Anuj Hematologic: No blood thinners, No blood disorders, No bleeding, No anemia and No blood clots Neuro Neurologic: No system reviewed and no additional complaints, except as documented, No as per HPI, No abnormal gait, No abnormal hearing, No abnormal movements, No abnormal speech, No behavioral changes, No burning sensations, No confusion, No convulsions, No disequilibrium, No dizziness, No localized weakness, No frequent falls, No headache(s), No lack of coordination, No loss of vision, No memory loss, Yes numbness, No other visual disturbances, No radicular pain, No restless legs, No sensory deficit, No syncope, Yes tingling, No tremor(s), No weakness and No other Exam Const General: cooperative, healthy appearing, comfortable and no acute distress [facility] Head: normal to inspection Eyes General: appearance normal, both eyes and all related structures Neck Neck: normal visual inspection Neck mass: No Chest Chest palpation & inspection: normal inspection of the chest Resp Effort & Inspection: normal respiratory effort Auscultation: clear to auscultation bilaterally Cardio Rate: regular rate Rhythm: regular rhythm GI Inspection: normal to inspection Palpation: soft and hernia (Bilateral inguinal hernias noted left larger than the right, reducible) Auscultation: normal bowel sounds Musc Cervical Spine: normal cervical lordosis Skin General: no rashes or lesions noted Neuro General: no focal motor deficits and CN's II-XI intact bilaterally Extrem General: normal to inspection Psych Appearance: grossly normal Affect: normal affect Assessment and Plan Assessment and Plan (1) Bilateral inguinal hernia: ?Status:?Acute ?Qualifiers: ?Obstruction and gangrene presence:?without obstruction or gangrene?? Recurrence:?non-recurrent? Qualified Code(s):?K40.20 - Bilateral inguinal hernia, without obstruction or gangrene, not specified as recurrent ?Plan: Dr. Campos will plan to perform a laparoscopic bilateral inguinal hernia repair with mesh. Procedure details, risks and benefits have been explained. Patient and her daughter have had the opportunity to ask and have questions answered. Patient verbally understands and agrees with the plan. I have examined the patient and the H&P has been reviewed. There are no clinical changes since date of exam. Charles Campos M.D., F.A.C.S.
--- NOTE | 2022-04-19 06:37 | DCINST_ITS ---
Discharge Instructions Procedure General Surgery Diet Discharge Diet: Light diet - advance as tolerated (if you have questions about your diet instructions, please talk to you doctor.) Activity Discharge Activity: May Not Drive (for 3-5 days or while taking narcotic pain medicine.) May shower in (days): 1 Lifting Restrictions: 10 pounds Dressing / Incision Call your doctor if your incision/area has: Continuous Slow Oozing, Sudden Increased Bleeding, Increased Pain/ Swelling, Increased Redness and Foul Smelling Discharge Call your doctor if you observe: Fever of 101 or Higher Suture Line Care: Avoid Pulling/Pushing and Avoid Pinching/Bending Additional Dressing/Incision Instructions:: Change or remove dressing in 4 days. Leave steri-strips in place for 1 week. Follow Up Care Please Follow Up With: Charles Campos MD When: Call [phone] to make an appointment to be seen in about 10 days. Test Results: Test results from this visit will be discussed in further detail at your follow- up appointment, if applicable. Discharge Plan Admission Attending Provider: Charles Campos Primary Care Provider: Oneyda South Discharge Orders/Prescriptions Prescriptions: No Action metformin 500 mg tablet extended release 24 hr 500 mg PO 1200 lisinopril 5 mg tablet 5 mg PO DAILY glipizide 5 mg tablet 5 mg PO DAILY cholecalciferol (vitamin D3) 1,000 unit capsule 2,000 unit PO DAILY trazodone 50 mg tablet 25 mg PO QHS levothyroxine 88 mcg capsule 88 mcg PO DAILY estradiol 42.5 GM cream 1 dose Vaginal TUTH Rx Instructions: 2x/week Referrals / Follow Up: Oneyda South MD [Primary Care Provider] - Disposition Disposition (needs filled in before D/C Order can be placed): Home, Self Care
[2022-04-19 06:50] LABS: Bedside Glucose 137 mg/dL (74-106)
[2022-04-19] MEDS: Lactated Ringers 1,000 ML 15 ML IV ×3 (07:09→13:13)
[2022-04-19] MEDS: Cefazolin 2 GM in 0.9% Normal Saline 100 ML IV (07:24)
[2022-04-19] MEDS: Bupivacaine 0.5% PF 10 ML VIAL (07:41)
--- NOTE | 2022-04-19 08:34 | OP.PCM_ITS ---
Report of Operation Date of Procedure: 04/19/22 Pre-Operative Diagnosis: Bilateral inguinal hernias Post-Operative Diagnosis: Direct and indirect left inguinal hernia Indirect right inguinal hernia Surgery/Procedure Performed:: Laparoscopic bilateral inguinal herniorrhaphy Bard 3D max large left lot number [id number], reference [id number], expiry date 11/15/2026 Bard 3D max large right lot number [id number], reference [id number], expiry date 12/16/2026 Description of Surgical Findings:: Timeout and informed consent was obtained. 86-year-old female was taken to the operating placed upon the table underwent general endotracheal intubation esthe dara. Ancef 2 g given intravenously. The abdomen sterilely prepped and draped. 0.5% Marcaine was used as a local anesthetic. Throughout the procedure a total of 25 cc was used. Skin sites were pretty anesthetized. A vertical infraumbilical incision was created holding sutures of 0 Vicryl placed varies needle inserted saline drop test performed the abdomen was insufflated with CO2 to a pressure of 10 mmHg pressure. 12 mm trocar inserted. 10 Proctor laparoscope inserted. Evidence of an indirect right inguinal hernia there was sigmoid colon fibrofatty tissue adherent to the left internal ring area. The right side was addressed first after 5 mm ports were placed on the right and left lower quadrant and under laparoscopic visualization ilioinguinal nerve blocks performed laparoscopically bilaterally. The peritoneum was incised lateral and into the the internal ring on the right carried medially the peritoneum was completely dissected free until the direct space indirect space and femoral area was clearly identified. The indirect sac on the right was completely inverted. Round ligament identified. I then did a similar dissection on the left. Neck dissection left somewhat more difficult due to the adherence from the sigmoid colon and to carefully dissect that free it. That the sac extended somewhat further distally and I used hemoclips to secure that very small last remnant prior to transecting it this allowed me then to complete the dissection and again had the indirect direct and femoral areas identified. There was both an indirect and indirect hernia on the left. Retropubic space was visualized bilaterally. Initially a large left 3D max mesh was placed nicely fit into position I secured it laterally and superiorly with secure strap. And then placed the mesh from the right secured it also to the left at the midline with secure strap and I secured it superiorly and laterally with secure strap. Excellent positioning of both pieces of mesh was achieved with excellent coverage of defect areas. The peritoneum was then approximated to itself using secure strap and Hem-o-jossy clips were indicated. The abdomen was deflated to a CO2 pressure of 5 mmHg to a ccomplish this. Hemostasis was intact. Complete obliteration of the mesh was achieved. Specimens none. Drains none. Blood loss very minimal. The abdomen was allowed to deflate of the CO2. The fascia at the umbilicus approximated with 2-0 Vicryl [id number] suture. Skin edges approximated 4 Monocryl subdermal stitches. Steri-Strips Telfa OpSite dressings applied. Sponge and instrument and needle counts were reported to the surgeon to be correct. The patient was taken to the recovery room in satisfied condition without apparent complication Charles Campos M.D., F.A.C.S. Surgeon: Charles Campos Type of Anesthesia: General Anesthesiologist: Rey Santillan
[2022-04-19 09:35] LABS: Bedside Glucose 152 mg/dL (74-106)
[2022-04-19] MEDS: Ondansetron ODT 4 MG Tablet PO (15:35)
== END 2022-04-19 17:00 | disposition home or self-care (01) ==
LOC: SDC 05:46 → AC 05:47
PROVIDERS: Anesthesiology; PCP Internal Medicine; Referring Provider Surgery; Visit Provider Surgery
PROC: (CPT 49650; principal; 2022-04-19 07:10)
DX: K40.20 Bilateral inguinal hernia, without obstruction or gangrene, not specified as recurrent (principal); E11.9 Type 2 diabetes mellitus without complications; E03.9 Hypothyroidism, unspecified; I10 Essential (primary) hypertension; Z79.899 Other long term (current) drug therapy; Z79.84 Long term (current) use of oral hypoglycemic drugs
CPT/HCPCS: 49650; 00840; 36415; 80048; 82962; 83036; 84443; 85027; 93005; J7120; C1781; J2405